=== PATIENT | female | born 2000 | race Caucasian/White ===

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

== ENCOUNTER 2021-08-07 14:06 | Outpatient (RCR) | payer BC, MEDICAID, SELFPAY ==
[2021-08-07 15:36] LABS: Hematocrit 37.2 % (37.0-47.0); Hemoglobin 12.6 g/dL (12.0-15.0); Mean Corpuscular HGB Conc 33.9 g/dl (32-36); Mean Corpuscular Hemoglobin 29.9 pg (26-34); Mean Corpuscular Volume 88.2 fl (80-100); Mean Platelet Volume 10.3 fl (7.4-10.4); Platelet Count Result 269 k/mm3 (150-375); Red Blood Count 4.22 M/mm3 (4.2-5.4); Red Cell Distribution Width 12.1 % (11.5-14.5); White Blood Count 11.5 K/mm3 (4.5-10.0)
[2021-08-07 16:22] LABS: HIV 1/2 Ab P24 Ag Result Negative (Negative)
[2021-08-07 16:52] LABS: Hepatitis B Surface Antigen Negative (Negative); Rubella IgG Antibody 51.9 IU/ML
[2021-08-09 15:38] LABS: Rapid Plasma Reagin Non-Reactive (NonReactive)
== END 2021-11-05 23:59 | disposition home or self-care (01) ==
LOC: ANHLAB 14:06
PROVIDERS: Visit Provider Obstetrics & Gynecology
DX: Z11.4 Encounter for screening for human immunodeficiency virus [HIV] (principal); N92.5 Other specified irregular menstruation
CPT/HCPCS: 36415; 84702; 85027; 86592; 86644; 86703; 86747; 86762; 86787; 86850; 86900; 86901; 87086; 87340; G0432

== ENCOUNTER 2021-12-04 11:26 | Outpatient (CLI) | payer BC, MEDICAID, SELFPAY ==
[2021-12-04 12:51] LABS: Hematocrit 29.1 % (37.0-47.0); Mean Corpuscular HGB Conc 34.4 g/dl (32-36); Mean Corpuscular Hemoglobin 31.4 pg (26-34); Mean Corpuscular Volume 91.5 fl (80-100); Mean Platelet Volume 10.2 fl (7.4-10.4); Platelet Count Result 159 k/mm3 (150-375); Red Blood Count 3.18 M/mm3 (4.2-5.4); Red Cell Distribution Width 13.3 % (11.5-14.5); White Blood Count 10.1 K/mm3 (4.5-10.0)
[2021-12-04 13:04] LABS: Glucose 1 Hour PP 50gm Dose 79 mg/dL
[2021-12-04 13:46] LABS: HIV 1/2 Ab P24 Ag Result Negative (Negative)
== END 2021-12-04 11:27 | disposition home or self-care (01) ==
PROVIDERS: Visit Provider Obstetrics & Gynecology
DX: Z34.91 Encounter for supervision of normal pregnancy, unspecified, first trimester (principal); Z3A.23 23 weeks gestation of pregnancy
CPT/HCPCS: 36415; 82947; 85027; 86703; G0432

== ENCOUNTER 2022-02-10 01:09 | Observation (INO) | payer BC, MEDICAID, SELFPAY ==
[2022-02-10] VITALS (9 sets, daily range): BP systolic 104–119; BP diastolic 58–71; PULSE 65–86
--- NOTE | 2022-02-10 01:15 | OBADM ---
This patient, Gayle Faith, admitted to the OB room Labor/Delivery/Recovery 104 for observation. Patient/family oriented to hospital policies and general routines including ID bracelet, bed and alarms, visiting hours, pain management, procedures, bathroom and other care routines, personal items, smoking policy, room service/diet, and visiting hours. Patient/Family are encouraged to report perceived risks to care and to ask questions if they do not understand what they are told or what they should do.
--- NOTE | 2022-02-12 13:47 | PM.OBTRLD ---
OB - Triage/Final Diagnosis Visit Information Comments/Additional reasons for admission: I have assessed the risk for this patient, Gayle Faith, and determined that she would benefit from observation care. Final Diagnosis (1) False labor after 37 completed weeks of gestation: Code(s): O47.1 - False labor at or after 37 completed weeks of gestation Status: Acute
== END 2022-02-10 03:43 | disposition home or self-care (01) ==
PROVIDERS: Admitting Provider Obstetrics & Gynecology; Visit Provider Obstetrics & Gynecology
DX: O47.1 False labor at or after 37 completed weeks of gestation (principal); Z3A.37 37 weeks gestation of pregnancy
CPT/HCPCS: G0378; G0379

== ENCOUNTER 2022-02-17 16:56 | Inpatient (IN) | payer BC, MEDICAID, SELFPAY ==
[2022-02-17] VITALS (10 sets, daily range): BP systolic 82–119; BP diastolic 51–76; PULSE 79–91; TEMP 36.4; BMI 31.6
[2022-02-17 17:58] LABS: Basophils Percent Auto 0.3 % (0.2-1.2); Eosinophils Percent Auto 0.4 % (0-4.4); Hematocrit 30.9 % (37.0-47.0); Hemoglobin 10.2 g/dL (12.0-15.0); Immature Granulocyte Absolute 0.03 K/mm3 (0.00-0.031); Immature Granulocyte Percent A 0.3 % (0-0.5); Immature Platelet Fraction Pct 9.1 % (0.9-11.2); Lymphocytes Absolute Auto 1.65 K/mm3 (0.9-3.2); Lymphocytes Percent Auto 16.5 % (18.3-44.2); Mean Corpuscular Hemoglobin 29.3 pg (26-34); Mean Corpuscular Volume 88.8 fl (80-100); Monocytes Absolute Auto 0.8 K/mm3 (0.1-0.6); Neutrophils Absolute Auto 7.4 K/mm3 (1.3-6.7); Neutrophils Percent Auto 74.5 % (45.5-73.1); Platelet Count Result 157 k/mm3 (150-375); Red Blood Count 3.48 M/mm3 (4.2-5.4); Red Cell Distribution Width 13.2 % (11.5-14.5)
[2022-02-17] MEDS: DINOPROSTONE 10 MG VAG INSERT VAGINAL (18:34)
--- NOTE | 2022-02-17 19:02 | WPDANESEPP ---
Anes - Eval Pre Procedure Date/Time: 02/17/22 19:02 Pre Op Diagnosis: IOL Patient Data Age: 21 Gender: F Height: 1.78 m Weight: 100 kg Last Vital Signs Pulse 90 02/17/22 19:00 BP 104/65 02/17/22 19:00 Allergies Allergy/AdvReac Type Severity Reaction Status Date / Time prednisone Allergy Severe facial Verified 02/14/22 13:37 swelling/ rash Home Medications Medication Instructions Recorded Confirmed Type ferrous sulfate 325 mg (65 mg 325 mg PO BID 12/17/21 02/12/22 History iron) tablet,delayed release sertraline 50 mg tablet 50 mg PO DAILY #90 tablet 12/31/21 02/12/22 Rx prenat.vits,geovanna,efs-owrb-jsyrm 1 tablet PO DAILY 02/14/22 02/14/22 History [ #2] Laboratory Tests 02/17/22 02/17/22 02/17/22 17:34 17:34 17:34 WBC 10.0 K/mm3 K/mm3 (4.5-10.0) RBC 3.48 M/mm3 L M/mm3 (4.2-5.4) Hgb 10.2 g/dL L g/dL (12.0-15.0) Hct 30.9 % L % (37.0-47.0) MCV 88.8 fl fl (80-100) MCH 29.3 pg pg (26-34) MCHC 33.0 g/dl g/dl (32-36) RDW 13.2 % % (11.5-14.5) Plt Count 157 k/mm3 k/mm3 (150-375) MPV 12.0 fl H fl (7.4-10.4) Immature Gran % (Auto) 0.3 % % (0-0.5) Neut % (Auto) 74.5 % H % (45.5-73.1) Lymph % (Auto) 16.5 % L % (18.3-44.2) [place] % (Auto) 8.0 % % (2.6-8.5) Eos % (Auto) 0.4 % % (0-4.4) Baso % (Auto) 0.3 % % (0.2-1.2) Lymph # (Auto) 1.65 K/mm3 K/mm3 (0.9-3.2) [place] # (Auto) 0.8 K/mm3 H K/mm3 (0.1-0.6) Eos # (Auto) 0.0 K/mm3 K/mm3 (0-0.3) Baso # (Auto) 0.0 K/mm3 K/mm3 (0.0-0.1) Abs Immat Gran (auto) 0.03 K/mm3 K/mm3 (0.00-0.031) Absolute Neuts (auto) 7.4 K/mm3 H K/mm3 (1.3-6.7) Absolute Nucleated RBC 0.0 K/mm3 K/mm3 (0.0-0.012) Nucleated RBC % 0.0 % % (0.0-0.2) % Immature Plt Fraction 9.1 % % (0.9-11.2) RPR Pending Blood Type O Positive Antibody Screen Negative Patient hx anesthesia problems: none Family hx anesthesia problems: none Results Review: All pre-operative results and documents have been reviewed as part of the pre-operative evaluation. [facility] Past Medical History Medical History IUP (intrauterine ), incidental Obesity (BMI 30-39.9) Family History Family History Other No pertinent family history Social History Social History Smoking status: Current every day smoker Smokeless tobacco user: other Second hand tobacco smoke exposure: Yes (marijuana) Substance use: current Other substance usage details: pt smokes occassionally Last use: 02/13/22 Gender identity (if verbalized by the patient): Female Sexual Orientation (if Verbalized by the Patient): Straight or Heterosexual Spiritual care concerns: No Exam Day of Procedure 02/17/22 19:02 Patient weight: obese Heart: regular rate and rhythm Lungs: normal air movement Airway: Mallampati scale Neurological: alert and oriented
[2022-02-17 21:11] LABS: Amphetamine Screen Urine Negative (Negative); Barbiturate Screen Urine Negative (Negative); Benzodiazepines Screen Urine Negative (Negative); Cannabinoid Screen Urine Positive (Negative); Cocaine Screen Urine Negative (Negative); Methadone Screen Urine Negative (Negative); Opiate Screen Urine Negative (Negative); Phencyclidine Screen Urine Negative (Negative)
[2022-02-18] VITALS (136 sets, daily range): BP systolic 88–187; BP diastolic 49–142; PULSE 55–150; RESP 16–18; TEMP 36.2–36.8; O2SAT 72–100
[2022-02-18] MEDS: LACTATED RINGERS 1,000 ML 125 ML IV CONT ×3 (06:28→09:46)
[2022-02-18] MEDS: OXYTOCIN 30 UNITS/NS 500 ML 30 UNITS/500 ML BAG IV CONT (06:29)
[2022-02-18 07:03] LABS: Rapid Plasma Reagin Non-Reactive (NonReactive)
[2022-02-18] MEDS: ONDANSETRON INJ 4 MG/2 ML VIAL IV PUSH (11:10)
--- NOTE | 2022-02-18 12:37 | WPDHPUPDATE1 ---
History and Physical Update Update Date/Time: 02/18/22 12:37 History and Physical has been reviewed, including an updated exam of the patient. There are NO changes in the patient's condition. Risks, benefits, and alternatives have been discussed and questions answered. Patient agrees to proceed with procedure.
--- NOTE | 2022-02-18 12:37 | WPDOBADMIT ---
Obstetrics - Admit Note Admission Note: record reviewed. No pertinent additions to the history and/or any subsequent changes in the physical findings that are not consistent with the expected course of the were found. Additions to the history and/or subsequent changes in the physical findings follow. None.
--- NOTE | 2022-02-18 12:37 | PM.OBPRVD ---
OB - Delivery Note Procedure Route of delivery: Episiotomy description: None Laceration Description: None Specimen: No Quantitative Blood Loss (ml): 300 Anesthesia type: Epidural Disposition: Floor Narrative: Patient prepped and draped in usual manner for this procedure. Maternal expulsive efforts readily delivered vertex. Rest baby was delivered without difficulty. Cord clamped cut placenta delivered spontaneously. Cervix vagina vulva were inspected with no lacerations or tears. Uterus was well contracted. At this point immediate postoperative condition mother baby were both excellent. Baby Weeks of gestation at delivery: 39 Infant gender: Female Weight (pounds): 6 Weight (ounces): 12 presentation: vertex Placenta delivery description: Spontaneous Cord Vessel Description: 3 Vessels score one minute: 9 score five minutes: 9 AMG Delivery Billing Delivery Delivery: Delivery Charge
[2022-02-18] MEDS: OXYTOCIN 30 UNITS/NS 500 ML 30 UNITS/500 ML BAG 125 UNITS IV CONT (12:56)
--- NOTE | 2022-02-18 15:10 | PC.NURSE ---
PT arrived on unit via wheelchair accompanied by significant other and infant. PT alert and awake and oriented to room 281 and surroundings. PT introductions made and plan of care discussed per post , pain management, breast feeding, daily care activities. Welcome packet reviewed and discussed. PT and significant other both recipients of instructions and no barriers to learning identified at this time. PT received instructions per one to one discussion, mom baby care guide and demonstrations. PT verbalized understanding of such care.
[2022-02-18] MEDS: DOCUSATE SODIUM 100 MG CAPSULE PO (17:26)
[2022-02-18] MEDS: IBUPROFEN 600 MG TABLET PO ×2 (17:26→23:59)
[2022-02-18] MEDS: LANOLIN (LANSINOH) 7.5 GM CREAM 1 APPLIC TOPICAL (17:27)
[2022-02-18] MEDS: ACETAMINOPHEN 325 MG TABLET 650 MG PO (21:15)
[2022-02-19] MEDS: ACETAMINOPHEN 325 MG TABLET 650 MG PO ×2 (04:02→11:00)
[2022-02-19 04:30] VITALS: BP 101/66; PULSE 89; RESP 16; TEMP 36.9; O2SAT 98
[2022-02-19 05:06] LABS: Hematocrit 30.3 % (37.0-47.0); Hemoglobin 9.9 g/dL (12.0-15.0)
[2022-02-19 07:40] VITALS: BP 101/61; PULSE 77; RESP 18; TEMP 37.2; O2SAT 100
--- NOTE | 2022-02-19 08:16 | PM.OBDSVD ---
DS: Admitting Diagnosis Discharge Date 02/19/2022 Admitting Diagnosis OB - DS: Summary OB Procedures : None OB Procedures Intrapartum: Spontaneous Vag Delivery OB Procedures: : None Time Spent with Patient Time attestation: Total time spent providing and/or coordinating discharge services: DS: Data Data Completed and Pending Labs on day of discharge: Labs from last 24 hours 02/19/22 04:37 Hgb 9.9 L Hct 30.3 L Discharge Plan Discharge Discharging Clinician: Noble Phillip Patient Disposition: Home, Self-Care Activity: as tolerated Diet: as tolerated Patient Instructions: Antibiotic Form Stand Alone Forms: General Discharge Information Follow-up/Referrals: Noble Phillip MD [Physician] - 3 Weeks Discharge Medications: New ibuprofen 600 mg Tablet 600 mg PO Q6H PRN (Reason: Cramping) Qty: 20 RF: 0 Continued ferrous sulfate 325 mg (65 mg iron) tablet,delayed release (DR/EC) 325 mg PO BID RF: 0 sertraline [Zoloft] 50 mg tablet 50 mg PO DAILY Qty: 90 RF: 1 #2 Tablet 1 tablet PO DAILY RF: 0 Date of admission: 02/17/22 16:56 Primary Care Provider: PHYSICIAN,ANIMAL ATTENDANT Admitting Provider: Noble Phillip Attending physician on admission: Noble Phillip Condition: Stable
[2022-02-19] MEDS: POLYSACCHARIDE IRON COMPLEX 150 MG CAPSULE PO (08:34)
[2022-02-19] MEDS: MULTIVIT/MIN/PREN/FOL AC/IRON TABLET 1 TAB PO (08:36)
[2022-02-19] MEDS: SERTRALINE HCL 50 MG TABLET PO (08:36)
[2022-02-19] MEDS: DOCUSATE SODIUM 100 MG CAPSULE PO (08:38)
[2022-02-19] MEDS: IBUPROFEN 600 MG TABLET PO (08:42)
--- NOTE | 2022-02-19 09:51 | WPDANLDPN2 ---
Anes-Prog Note L&D Date/Time: 02/19/22 09:51 Comfortable throughout: labor and delivery Neuraxial method: epidural Epidural/Spinal procedure site: clean & non-tender Neuro status: Neuro function grossly intact. Cardiovascular status: normal Respiratory status: normal Airway patency: baseline Mental status: baseline Post-Op hydration status: normal Vital Signs: Last Vital Signs Temp 37.2 C 02/19/22 07:40 Pulse 77 02/19/22 07:40 Resp 18 02/19/22 07:40 BP 101/61 02/19/22 07:40 Pulse Ox 100 02/19/22 07:40 Pain score (VAS): 10/20 Post-procedural complaints: none Patient feedback: Patient satisfied with anesthetic care.
[2022-02-19 12:06] VITALS: BP 118/83; PULSE 81; RESP 18; TEMP 37; O2SAT 100
--- NOTE | 2022-02-19 15:44 | PCCCNOTE ---
Addendum entered by PAUL Siddiqui 02/19/22 16:09: Submitted online DCFS report [id number]. Original Note: Care Coordination Note: Met with pt. and ALEN Gomez who report this is their second child. They live together at home. Report they have all necessary equipment for baby including a car seat, clothing, diapers, crib etc. She plans to breast feed at discharge and had questions regarding whether she could breastfeed and smoke marijuana, referred pt. to her scientific programmer analyst and OB for discussion on risks. Pt. reports recreational marijuana use. Reports she has used recreational marijuana for a long time and plans to continue at discharge. Denies any other substance use at this time. Pt. already aware that DCFS will be contacted to determine whether they will offer services at discharge. Pt. aware and agreeable. Pt. was provided resources and denies any need for WIC services at discharge. Pt. denies any other case management needs.
[2022-02-20 10:44] VITALS: BP 115/68; PULSE 82; RESP 16; TEMP 37.3; O2SAT 98
== END 2022-02-19 14:58 | disposition home or self-care (01) | DRG 807 ==
LOC: ANHLDR 02-18 08:56 → ANHOB2 02-18 15:35
PROVIDERS: Admitting Provider Obstetrics & Gynecology; Visit Provider Obstetrics & Gynecology
DX: O36.8330 Maternal care for abnormalities of the fetal heart rate or rhythm, third trimester, not applicable or unspecified (principal); Z37.0 Single live birth; Z3A.39 39 weeks gestation of pregnancy
CPT/HCPCS: 36415; 80307; 85014; 85018; 85025; 85055; 86592; 86850; 86900; 86901; A9270; J2405; J2590; J2795; J7120